=== PATIENT | male | born 2000 | race Caucasian/White ===

== ENCOUNTER 2022-03-07 15:38 | Emergency (ER) | payer OTHER, SELFPAY ==
[2022-03-07 15:44] VITALS: BP 125/76; PULSE 79; RESP 14; TEMP 37.3; O2SAT 100
--- NOTE | 2022-03-07 16:32 | ED.EYEPROB ---
HPI - Eye Problem General Chief complaint: Eye Problems Stated complaint: Left eye iritation Time Seen by Provider: 03/07/22 15:55 Source: patient, RN notes reviewed and old records reviewed Mode of arrival: ambulatory Limitations: no limitations History of Present Illness HPI Narrative: 21-year-old male presents to [facility] care with complaints of redness to his eyes and some irritation after leaving his disposable contacts in for 4 months. Patient states that he has had some frontal headache intermittently and mild soreness to his left eye. Patient denies any drainage from his eyes denies any visual changes and denies any sharp pain to eyes, reports no photophobia or any excessive tearing. Visual acuity 20/200 with no glasses. MD chief complaint: eye pain and eye redness Severity scale (1-10): 3 Treatments Prior to Arrival: removed contact lens and other (redness eye drops) Related Data Allergies Allergy/AdvReac Type Severity Reaction Status Date / Time No Known Allergies Allergy Verified 03/07/22 15:51 Review of Systems Review of Systems: CONSTITUTIONAL: Denies fever, chills, or sweats. EYES: Denies visual changes,positive redness, no discharge mild discomfort left eye ENT: Denies rhinorrhea, congestion, sore throat, or otalgia. CARDIOVASCULAR: Denies chest pain, palpitations, or edema. RESPIRATORY: Denies cough or dyspnea. GASTROINTESTINAL: Denies abdominal pain, nausea, vomiting, or diarrhea. GENITOURINARY: Denies dysuria or hematuria. SKIN: Denies rash or itching. MUSCULOSKELETAL: Denies back pain, joint pain, or myalgia. NEUROLOGIC: mild intermittent frontal headache, no numbness, or weakness. PSYCHIATRIC: Denies anxiety or depression. All systems reviewed & are unremarkable except as noted in HPI and below PMFSH Social History Social History (Updated 03/10/22 @ 21:21 by Antonia Carlos NP) Smoking status: Current every day smoker Tobacco type: cigarettes, e-cigarettes/vaping and smokeless tobacco Alcohol intake: current Alcohol use details: social Substance use type: does not use Gender identity (if verbalized by the patient): Male Comments At time of signature, agree with nursing past medical, surgical, social and family history. There is no relevant family history pertinent to the presenting complaint Exam Narrative: GENERAL: Well-appearing, well-nourished, and in no acute distress. HEAD: Normocephalic, atraumatic. EYES: PERRLA and EOMI.minimal redness to left eye noted, right eye clear,no acute pain or photophobia ENT: Nares clear, no rhinorrhea or epistaxis. Mucous membranes moist.TM's normal throat pink with no lesions or tonsil swelling NECK: Supple.no lymphadenopathy CHEST: Clear to auscultation. No respiratory distress.SAO2 100% on room air HEART: Regular rate and rhythm. No murmur heard. Normal peripheral pulses. ABDOMEN: Soft, nontender, nondistended, normal active bowel sounds. EXTREMITIES: Normal range of motion. No edema. SKIN: Warm, dry, no rash. NEURO: No focal deficits. Alert and oriented x3. Course Course Level of Care: Express Care Visit Vital Signs Vital signs: Vital Signs Temperature 37.3 C 03/07/22 15:44 Pulse Rate 79 03/07/22 15:44 Respiratory Rate 14 03/07/22 15:44 Blood Pressure 125/76 03/07/22 15:44 Pulse Oximetry 100 03/07/22 15:44 Oxygen Delivery Room Air 03/07/22 15:44 Temperature 37.3 C 03/07/22 15:44 Pulse Rate 79 03/07/22 15:44 Respiratory Rate 14 03/07/22 15:44 Blood Pressure 125/76 03/07/22 15:44 Pulse Oximetry 100 03/07/22 15:44 Oxygen Delivery Room Air 03/07/22 15:44 MDM - Eye Problem Differential Diagnosis Differential diagnosis: Likely corneal abrasion, conjunctivitis, subconjunctival hemorrhage and other (eye infection related to contact use) Medical Records Attestation: I reviewed the patient's medical records. Critical Care Time Critical Care Time Critical Care Time: No Discharge Plan Discharge C
== END 2022-03-07 16:45 | disposition home or self-care (01) ==
PROVIDERS: Emergency Provider Registered Nurse
DX: H10.9 Unspecified conjunctivitis (principal); F17.210 Nicotine dependence, cigarettes, uncomplicated; F17.290 Nicotine dependence, other tobacco product, uncomplicated
CPT/HCPCS: 99213; G0463

== ENCOUNTER 2022-05-11 10:04 | Emergency (ER) | payer SELFPAY ==
--- NOTE | 2022-05-11 10:11 | ED.ABDPAIN ---
HPI - Abdominal Pain General Chief Complaint: Abdominal Pain Stated Complaint: abdominal pain Time Seen by Provider: 05/11/22 10:11 Source: patient and RN notes reviewed History of Present Illness HPI narrative: Patient is a 22-year-old male who presents to urgent care with complaints of a lump in the right testicle. Patient states that he noticed it 1st over the weekend. Patient states that comes and goes and he does not always see there when it is there it is very noticeable . Patient states that sometimes the pain does radiate to the abdomen. patient is currently denying any pain at this time. States that he Notices the pain more whenever he is lifting. Patient has not done anything [id number] for his pain. Patient has not talked to his doctor. No other acute complaints. No acute distress noted. Patient aware of the plan of care. Some parts of this dictation were generated by voice recognition software and may contain typographical and/or grammatical inaccuracies. Related Data Home Medications Medication Instructions Recorded Confirmed No Home Medications 05/11/22 05/11/22 Allergies Allergy/AdvReac Type Severity Reaction Status Date / Time No Known Allergies Allergy Verified 05/11/22 10:29 Review of Systems Review of Systems: CONSTITUTIONAL: Denies fever, chills, or sweats. EYES: Denies visual changes, redness, or discharge. ENT: Denies rhinorrhea, congestion, sore throat, or otalgia. CARDIOVASCULAR: Denies chest pain, palpitations, or edema. RESPIRATORY: Denies cough or dyspnea. GASTROINTESTINAL: Denies abdominal pain, nausea, vomiting, or diarrhea. GENITOURINARY: Denies dysuria or hematuria. reports of a lump to right testicle SKIN: Denies rash or itching. MUSCULOSKELETAL: Denies back pain, joint pain, or myalgia. NEUROLOGIC: Denies headache, numbness, or weakness. All other systems reviewed are negative, except as documented in HPI. [facility] Social History Social History (Updated 03/10/22 @ 21:21 by Antonia Carlos NP) Smoking status: Current every day smoker Tobacco type: cigarettes, e-cigarettes/vaping and smokeless tobacco Alcohol intake: current Alcohol use details: social Substance use type: does not use Gender identity (if verbalized by the patient): Male Comments At the time of my signature, I reviewed and agree with the nursing past medical, surgical, social, and family history. There is no relevant family history pertinent to the patient complaint. Exam Narrative: GENERAL: This is a well-nourished, well-developed patient, in no apparent distress. HEAD: normocephalic, atraumatic. EYES: PERRL. Sclera clear/white. Vision is grossly intact. EARS: External ears normal NOSE: External nose normal with no obvious nasal discharge, nares without redness, no rhinorrhea. THROAT: Mucous membranes moist NECK: Neck supple GASTROINTESTINAL: Abdomen soft, non-tender, nondistended. : no notable inguinal hernia to the right. No noticeable abscess, folliculitis or lump to the right testicle. No pain palpation to the right testicle. No erythema, edema, or asssending testicle noted. SKIN: warm, intact with no suspicious lesions or rash, good texture and turgor. NEURO: awake, alert, and oriented to person, place and time. There were no obvious focal neurologic abnormalities. EXTREMITIES: No clubbing, cyanosis, or edema. Course Course Level of Care: Express Care Visit Vital Signs Vital signs: Vital Signs Temperature 98.5 F 05/11/22 10:15 Pulse Rate 77 05/11/22 10:15 Respiratory Rate 18 05/11/22 10:15 Blood Pressure 132/43 L 05/11/22 10:15 Pulse Oximetry 100 05/11/22 10:15 Oxygen Delivery Room Air 05/11/22 10:15 Temperature 98.5 F 05/11/22 10:15 Pulse Rate 77 05/11/22 10:15 Respiratory Rate 18 05/11/22 10:15 Blood Pressure 132/43 L 05/11/22 10:15 Pulse Oximetry 100 05/11/22 10:15 Oxygen Delivery Room Air 05/11/22 10:15 Rev
[2022-05-11 10:15] VITALS: BP 132/43; PULSE 77; RESP 18; TEMP 36.9; O2SAT 100
== END 2022-05-11 10:35 | disposition home or self-care (01) ==
PROVIDERS: Emergency Provider Nurse Practitioner Family
DX: N50.811 Right testicular pain (principal); F17.210 Nicotine dependence, cigarettes, uncomplicated; F17.290 Nicotine dependence, other tobacco product, uncomplicated
CPT/HCPCS: 99211; G0463